=== PATIENT | female | born 1995 | race Caucasian/White ===

== ENCOUNTER → 2017-01-25 | Outpatient (CLI) | payer BC ==
[~2017-01-25] MED LIST: PRENTAB26 PO
[2017-01-25 17:01] LABS: HEMATOCRIT 38.8 % (37-47); MEAN CORPUSCULAR HEMOGLOBIN 29.5 pg (25-34); MEAN CORPUSCULAR HGB CONC 33.5 g/dl (32-36); MEAN PLATELET VOLUME 10.3 fL (7.4-10.4); PLATELET COUNT 215 K/uL (130-400); RED BLOOD COUNT 4.41 M/uL (4.2-5.4); WHITE BLOOD COUNT 12.24 K/uL (4.8-10.8)
--- NOTE | 2017-03-11 06:05 | CODING QUERY NO DIAGNOSIS ---
TREATMENT RENDERED WITHOUT A DIAGNOSIS To promote full compliance with coding requirements relating to patient care, physician participation is requested in all cases of sulfuric acid plant operator uncertainty. Please assist us with providing a diagnosis/symptom for the test(s) below: A diagnosis/symptom was not documented on your Order. A valid diagnosis/symptom is required to bill all insurances. Please remember that we are unable to code a diagnosis of rule out, probable, possible, questionable, or suspected. Tests that require a diagnosis: * CBC W/O DIFF DIAGNOSIS: Provider Signature: Date: Thank you Marni [facility] Information Management Once completed, please kindly fax back to [phone] For questions please call [phone]
== END | disposition home or self-care (01) ==
LOC: C.LAB 16:28
PROVIDERS: ATTEND Obstetrics & Gynecology
DX: Z01.89 Encounter for other specified special examinations (principal)

== ENCOUNTER → 2017-02-05 | Outpatient (CLI) | payer BC | END | disposition home or self-care (01) | LOC: C.LABSPEC 14:26 | PROVIDERS: ATTEND Obstetrics & Gynecology | DX: Z34.03 Encounter for supervision of normal first pregnancy, third trimester (principal) ==

== ENCOUNTER 2017-02-23 15:06 | Outpatient (CLI) | payer BC ==
[2017-02-23 16:34] LABS: URINE APPEARANCE CLEAR (CLEAR); URINE BILIRUBIN NEG (NEG); URINE COLOR YELLOW; URINE EPITHELIAL CELL AUTO 20-30 /lpf (0-5); URINE NITRITE NEG (NEG); URINE PH 5.5 (4.5-7.5); URINE SPECIFIC GRAVITY 1.011 (1.000-1.030); UROBILINOGEN NEG (NEG); ZZURINE CULT IF INDIC CATH NO
[2017-02-23 16:38] LABS: MANUAL MICROSCOPIC REQUIRED? NO; REVIEW REQ? NO
--- NOTE | 2017-02-23 18:42 | HISTORY & PHYSICAL EXAMINATION ---
DATE OF ADMISSION: 02/23/2017 CHIEF COMPLAINT: Intrauterine 38 weeks' 1 day and abdominal pain. HISTORY OF PRESENT ILLNESS: The patient is a 21-year-old, 1, para 0. Her course was well-dated. Her due date is 03/08/2017. She has a marginal insertion of the cord on the placenta and she has gestational diabetes which was diagnosed in [place]. She has been well-controlled. She called because she slept fitfully last night. She had lower abdominal pain including a lot of midline pain. She was having irregular contractions, but she had this constant pain that she was concerned about. She denied having any bleeding. She had no leakage of fluid. She was told to come to maternity for evaluation where she was placed on a monitor. ALLERGIES: No known drug allergies. PAST SURGICAL HISTORY: Status post appendectomy. MEDICAL HISTORY: Gestational diabetes. SOCIAL HISTORY: No smoking. No alcohol intake during . FAMILY HISTORY: Mom is 55, in good health. Father is 55, in good health. One brother is 19, in good health. REVIEW OF SYSTEMS: HEAD: No symptoms of frequent or severe headaches. EYES: No symptoms of blurred vision or double vision. EARS: No symptoms of frequent ear infections or difficulty hearing. NOSE: No symptoms of frequent nosebleeds or difficulty breathing through her nose. THROAT: No symptoms of frequent or severe sore throat, difficulty swallowing. RESPIRATORY SYSTEM: No history of asthma, chest pain or shortness of breath. PHYSICAL EXAMINATION: GENERAL: Well-developed, well-nourished 21-year-old white female, alert and oriented x3 in mild distress. EYES: Conjunctivae are pink, sclerae white. No evidence of jaundice. EARS: Normal light reflex bilaterally. NOSE: Had normal mucosa. Septum is midline. There were no polyps. THROAT: No erythema or evidence of infection. Teeth are in good state of repair. HEAD: Normocephalic, normal distribution of hair. NECK: Supple. Trachea midline. Thyroid is not enlarged. There is no adenopathy appreciated. Both carotids are of good intensity. CHEST: Clear to auscultation and percussion. No wheezes, rales or rhonchi appreciated. HEART: Had regular rhythm. S1, S2 were normal. ABDOMEN: Soft and nontender. There was no palpable uterine tenderness. Size was consistent with a 38-week fetus. No CVA tenderness. EXTREMITIES: No calf tenderness. PELVIC: Presenting part was floating. Cervix was posterior, about 80% effaced and soft, but closed. IMPRESSIONS OF THIS CASE: Intrauterine at 38 weeks' 1 day, gestational diabetes. Rule out labor. MTDD
== END 2017-02-23 17:40 | disposition home or self-care (01) ==
LOC: C.LD 15:06 → C.OPB 15:06
PROVIDERS: ATTEND Obstetrics & Gynecology
DX: O62.9 Abnormality of forces of labor, unspecified (principal); O24.419 Gestational diabetes mellitus in pregnancy, unspecified control; Z3A.38 38 weeks gestation of pregnancy; Z90.49 Acquired absence of other specified parts of digestive tract

== ENCOUNTER 2017-03-10 15:46 | Inpatient (IN) | payer BC ==
[~2017-03-10] VITALS: Ht 154.9 cm; Wt 62.0 kg
[2017-03-10] MEDS ORDERED: LACTATED RINGER'S 1000ML 1,000 ML IV PRN (16:22)
[2017-03-10 16:46] VITALS: Ht 154.9 cm; Wt 62.0 kg
[2017-03-10] MEDS ORDERED: PRENTAB26 PO (16:49)
[2017-03-10 17:19] LABS: HEMATOCRIT 38.8 % (37-47); MEAN CELL VOLUME 86.6 fL (80-100); MEAN CORPUSCULAR HEMOGLOBIN 30.8 pg (25-34); MEAN CORPUSCULAR HGB CONC 35.6 g/dl (32-36); MEAN PLATELET VOLUME 11.4 fL (7.4-10.4); PLATELET COUNT 175 K/uL (130-400); RED BLOOD COUNT 4.48 M/uL (4.2-5.4); WHITE BLOOD COUNT 12.07 K/uL (4.8-10.8)
[2017-03-10] MEDS ORDERED: OXYTOCIN 30 UNITS/500ML NSS IV ONE (21:18)
[2017-03-10] MEDS ORDERED: LACTATED RINGER'S 1000ML 500 ML IV PRN (21:46)
[2017-03-10] MEDS: LACTATED RINGER'S 1000ML 1,000 ML IV SCH (21:56)
[2017-03-10] MEDS ORDERED: OXYTOCIN 30 UNITS/500ML NSS IV PRN (22:00)
[2017-03-11] MEDS ORDERED: BUPIVACAINE 0.25% 30 ML VIAL ONE (00:52)
[2017-03-11] MEDS ORDERED: EpHEDrine SULFATE INJ 50 MG/ML AMP ONE (00:52)
[2017-03-11] MEDS ORDERED: FENTANYL CITRATE INJ 50 MCG/1 ML 2 ML VIAL ONE (00:53)
[2017-03-11] MEDS ORDERED: FENTANYL 2MCG/ML ROPIV 1.25MG/ML 100ML BAG EPI ONE (00:53)
[2017-03-11] MEDS ORDERED: NALOXONE HCL INJ 1 MG in SODIUM CHLORIDE 0.9% 1000ML 1,000 ML IV PRN (01:47)
[2017-03-11] MEDS ORDERED: LACTATED RINGER'S 1000ML 500 ML IV PRN (01:47)
[2017-03-11] MEDS ORDERED: DiphenhydrAMINE HCL 50 MG/ML VIAL IV PRN (02:00)
[2017-03-11] MEDS ORDERED: EpHEDrine SULFATE INJ 50 MG/ML AMP IV PRN (02:00)
[2017-03-11] MEDS ORDERED: NALOXONE HCL INJ 0.4 MG/1 ML VIAL/CARP IV PRN (02:00)
[2017-03-11] MEDS ORDERED: NALBUPHINE HCL INJ 10 MG/ML AMP IV PRN (02:00)
[2017-03-11] MEDS ORDERED: ONDANSETRON INJ 2 MG/ML 2 ML VIAL IV PRN (02:00)
[2017-03-11] MEDS: FENTANYL 2MCG/ML ROPIV 1.25MG/ML 100ML BAG EPI PRN ×2 (06:56→08:40)
[2017-03-11] MEDS: LACTATED RINGER'S 1000ML 1,000 ML IV SCH (09:26)
[2017-03-11] MEDS ORDERED: OXYTOCIN 30 UNITS/500ML NSS IV PRN (10:30)
[2017-03-11] MEDS ORDERED: HYDROCORTISONE ACETATE 25 MG SUPP PR PRN (10:30)
[2017-03-11] MEDS ORDERED: BENZOCAINE 20% AER SPR 82.5 GM CAN EXT PRN (10:30)
[2017-03-11] MEDS ORDERED: OXYCODONE/ACETAMINOPHEN 5-325 TAB PO PRN (10:30)
[2017-03-11] MEDS ORDERED: ACETAMINOPHEN/CODEINE 300/30MG TAB PO PRN ×2 (10:30)
[2017-03-11] MEDS ORDERED: SUPERCREAM 0.870 % 15GM JAR EXT PRN (10:30)
[2017-03-11] MEDS ORDERED: LANOLIN OINT EXT PRN ×2 (10:30)
[2017-03-11] MEDS ORDERED: DIPHTHERIA/TETANUS/PERTUSSIS 0.5 ML SYR/VIAL IM. ONE (10:30)
[2017-03-11] MEDS ORDERED: ACETAMINOPHEN 325 MG TAB PO PRN (10:30)
--- NOTE | 2017-03-11 10:58 | DELIVERY SUMMARY ---
DATE OF OPERATION: 03/11/2017 This is a 21-year-old 1, para 1. complicated by marginal insertion of the cord on the placenta and also by gestational diabetes. The patient was well controlled by diet during her old course. Blood type is O positive. Rubella immune. Her due date was 03/08/2017. She was admitted when she had a elizabeth rupture of the membrane, which was confirmed in the office with Nitrazine paper. After admission to the hospital, she labored spontaneously for several hours. Her beta strep was negative. Eventually, the contractions started to space and get less intense when she was about 4 cm. At which point, we started IV Pitocin and when she got to be 5-6, she requested and received epidural anesthesia, from which she obtained good pain relief. The Pitocin was then gradually turned up until she had a strong regular pattern. She became fully dilated. The head was in an MARIELA position. She started to push. When she was pushing, she had some minor dips in the heart rate. So, the Pitocin was turned off. The monitor tracing immediately improved. She continued to get frequent contractions. She pushed with them and then about an hour, pushed down a live female infant in the MARIELA position over an intact perineum. was suctioned through the mouth and the nose. Shoulders were delivered without difficulty. Cord was clamped, cut by the father. Cord blood was obtained. With IV Pitocin running, the placenta was removed intact. Inspection of the perineum revealed 2 minor lacerations in the labia minora on the right and left side. These were repaired with a running 3-0 chromic. There was a small laceration at about 10 o'clock in the vaginal opening at the area of the hymenal ring and this was repaired with a running 3-0 chromic and 1 or 2 interrupted [id number] 3-0 chromic. There was also a small midline laceration at 6 o'clock and this was repaired with a running 2-0 Vicryl. Following this, hemostasis was good. Vaginal exam revealed no hematoma formation or sponges in the vagina. Estimated blood loss was only about 200 mL. The patient tolerated the procedure well. I attest to the content of the Intraoperative Record and any orders documented therein. Any exception s are noted below.
--- NOTE | 2017-03-11 11:53 | Anesthesia Procedure Note ---
Anesthesia Epidural Removal Nt Date & Time Mar 11, 2017 at 11:53 Vital Signs Pain Intensity: 0.0 Notes Mental Status: alert / awake / arousable, participated in evaluation Nausea / Vomiting: adequately controlled Pain: adequately controlled Airway Patency, RR, SpO2: stable & adequate BP & HR: stable & adequate Hydration State: stable & adequate Neuraxial Anesthesia: was administered Anesthetic Complications: no major complications apparent, pt satisfied with anesthetic care Epidural: removed without complications, with tip intact
[2017-03-11 12:40] VITALS: BP 101/58; PULSE 115; TEMP 36.7
[2017-03-11 16:45] VITALS: BP 107/75; PULSE 93; TEMP 37.4
[2017-03-11] MEDS: IBUPROFEN 600 MG TAB PO PRN (17:45)
[2017-03-11 19:55] VITALS: BP 110/67; PULSE 99; TEMP 37
[2017-03-11] MEDS: DOCUSATE SODIUM 100 MG CAP PO SCH (20:05)
[2017-03-12 00:20] VITALS: BP 104/73; PULSE 99; TEMP 36.8
[2017-03-12] MEDS: IBUPROFEN 600 MG TAB PO PRN ×3 (00:40→20:21)
[2017-03-12 04:00] VITALS: BP 87/51; PULSE 85; TEMP 36.2
[2017-03-12 07:07] LABS: HEMATOCRIT 34.8 % (37-47)
[2017-03-12] MEDS: DOCUSATE SODIUM 100 MG CAP PO SCH ×2 (07:31→20:21)
[2017-03-12] MEDS: FERROUS SULFATE 325 MG TAB PO SCH (07:31)
[2017-03-12] MEDS: PRENATAL VITAMIN TAB PO SCH (07:31)
[2017-03-12 07:50] VITALS: BP 102/69; PULSE 89; TEMP 37.1; O2SAT 97
--- NOTE | 2017-03-12 08:55 | Progress Note ---
Subjective Mar 12, 2017. Subjective conversation w/ patient Ambulation: ambulating normally Voiding: no voiding problems Passing Gas: Yes Diet Tolerance: Regular Diet Lochia: Small Feeding Type: Breast Feeding Review of Systems Constitutional: + fever Objective Vital Signs Date Time Temp Pulse Resp B/P (MAP) Pulse Ox O2 Delivery O2 Flow Rate FiO2 03/12/17 04:00 36.2 85 16 87/51 (63) Room Air 03/12/17 00:20 Room Air 03/12/17 00:20 36.8 99 18 104/73 (83) Room Air 03/11/17 19:55 37.0 99 18 110/67 (81) Room Air 03/11/17 16:45 37.4 93 18 107/75 (86) Room Air 03/11/17 16:45 Room Air 03/11/17 12:40 36.7 115 18 101/58 (72) Room Air 03/11/17 12:40 Room Air Physical Exam General Appearance: WELL-APPEARING Abdomen: non tender Fundus: Firm, Non-Tender Extremities: no pedal edema, no calf tenderness Laboratory Results Last 24 Hours Test 03/12/17 06:43 Hemoglobin 12.0 g/dL Hematocrit 34.8 % Assessment and Plan Post- Day#: 1
[2017-03-12 15:30] VITALS: BP 104/63; PULSE 91; TEMP 36.9; O2SAT 97
[2017-03-12 19:50] VITALS: BP 104/71; PULSE 93; TEMP 37; O2SAT 98
[2017-03-12] MEDS ORDERED: BISACODYL 5 MG TABEC PO SCH (20:00)
[2017-03-13 00:45] VITALS: BP 110/68; PULSE 95; TEMP 36.6; O2SAT 97
[2017-03-13] MEDS ORDERED: BISACODYL 10 MG SUPP PR PRN (07:00)
[2017-03-13 08:10] VITALS: BP 103/61; PULSE 96; TEMP 37.3; O2SAT 98
--- NOTE | 2017-03-13 08:26 | Progress Note ---
Subjective Mar 13, 2017. Subjective conversation w/ patient Ambulation: ambulating normally Voiding: no voiding problems Passing Gas: Yes Diet Tolerance: Regular Diet Lochia: Small Feeding Type: Breast Feeding Review of Systems Constitutional: + fever Objective Vital Signs Date Time Temp Pulse Resp B/P (MAP) Pulse Ox O2 Delivery O2 Flow Rate FiO2 03/13/17 00:45 97 Room Air 03/13/17 00:45 36.6 95 20 110/68 (82) 97 Room Air 03/12/17 19:50 37.0 93 16 104/71 (82) 98 Room Air 03/12/17 15:30 36.9 91 20 104/63 (77) 97 Room Air 03/12/17 15:30 97 Room Air Physical Exam General Appearance: WELL-APPEARING Abdomen: non tender Fundus: Firm, Non-Tender Extremities: no pedal edema, no calf tenderness Assessment and Plan Post- Day#: 2
--- NOTE | 2017-03-13 08:29 | Discharge Instructions ---
Discharge Instructions Date of Service Mar 13, 2017. Admission Reason for Admission: Check Rupture Discharge Discharge Diagnosis / Problem: ruptured membranes term gestational diabetes Discharge Goals Goal(s): Routine recovery after delivery Activity Recommendations Activity Limitations: as noted below ACTIVITY RECOMMENDATIONS: * Gradual return to full activity over the next 2-3 weeks. * No lifting - nothing heavier than baby over the next 2-3 weeks. * Do not engage in vigorous exercise, sexual activity or sports until cleared by your physician. * Do not drive or operate any motorized equipment until cleared by your physician. * You may shower/bathe daily. DIET: Resume Previous Diet If Breast-feeding: * Increase caloric intake by 500 calories, eat 3 well balanced meals, 2 high protein snacks a day and drink 6-8 8oz. glasses of fluid per day. BREAST CARE: If you are not breast feeding: * Wear a supportive bra 24 hours a day for one to two weeks. * Avoid stimulating your breasts and nipples as much as possible during the first few weeks after delivery. * When taking a shower, have the warm water hit your back, not breasts. * When your breasts feel full, apply ice packs. Usually three to four times a day helps ease the discomfort. * Take a mild pain medication (Tylenol / Motrin) when you are uncomfortable. If breast feeding: * Use breast milk to lubricate nipples. Lansinoh cream may be used for sore nipples. You do not need to remove cream prior to breast feeding. If using a different brand of cream, check the label for directions regarding removal of cream prior to nursing. * Wear a supportive bra. * If having problems with breasts or breast feeding, call a design consultant or your health care provider. OVER THE COUNTER MEDICATION: * For discomfort or pain, you may use Acetaminophen (Tylenol), Ibuprofen (Advil ), or Naproxen (Aleve) following the package directions. * For constipation you may use Colace following the package directions. SPECIAL CARE INSTRUCTIONS: * Vaginal rest (no tampons, douching, intercourse) until after doctor 's visit. * control as discussed with doctor. * Verbalizes understanding of car seat law as reviewed with patient nursing. * Car Seat hand-out given and reviewed with patient by nursing. * Shaken baby information reviewed with patient by nursing. Call you doctor if: * Temperature greater than or equal to 100.4 degrees F or 38.0 degrees C. Take your temperature twice daily for a week. * Bleeding becomes heavier than the heaviest part of your period - saturating a sanitary pad within an hour. * Passing large clots. * Bleeding has a foul smelling odor. * Signs and symptoms of phlebitis: leg pain, warm, red or swollen area on leg. * "Baby Blues" lasting longer than two weeks. ++ If you have had a and incision has increased pain, redness, swelling, presence of any drainage, or if the incision starts to open up. If you have any questions or concerns, call your health care practitioner at [phone]. FOLLOW-UP VISIT: Please call the office at to schedule a 6 week examination. . Instructions / Follow-Up Instructions / Follow-Up ACTIVITY RECOMMENDATIONS: * Gradual return to full activity over the next 2-3 weeks. * No lifting - nothing heavier than baby over the next 2-3 weeks. * Do not engage in vigorous exercise, sexual activity or sports until cleared by your physician. * Do not drive or operate any motorized equipment until cleared by your physician. * You may shower/bathe daily. DIET: Resume Previous Diet If Breast-feeding: * Increase caloric intake by 500 calories, eat 3 well balanced meals, 2 high protein snacks a day and drink 6-8 8oz. glasses of fluid per day. BREAST CARE: If you are not breast feeding: * Wear a supportive bra 24 hours a day for one to two weeks. * Avoid stimulating your breasts and nipples as much as possible during the first few weeks after delivery. * When taking a shower, have the warm water hit your back, not breasts. * When your breasts feel full, apply ice packs. Usually three to four times a day helps ease the discomfort. * Take a mild pain medication (Tylenol / Motrin) when you are uncomfortable. If breast feeding: * Use breast milk to lubricate nipples. Lansinoh cream may be used for sore nipples. You do not need to remove cream prior to breast feeding. If using a different brand of cream, check the label for directions regarding removal of cream prior to nursing. * Wear a supportive bra. * If having problems with breasts or breast feeding, call a design consultant or your health care provider. OVER THE COUNTER MEDICATION: * For discomfort or pain, you may use Acetaminophen (Tylenol), Ibuprofen (Advil ), or Naproxen (Aleve) following the package directions. * For constipation you may use Colace following the package directions. SPECIAL CARE INSTRUCTIONS: * Vaginal rest (no tampons, douching, intercourse) until after doctor 's visit. * control as discussed with doctor. * Verbalizes understanding of car seat law as reviewed with patient nursing. * Car Seat hand-out given and reviewed with patient by nursing. * Shaken baby information reviewed with patient by nursing. Call you doctor if: * Temperature greater than or equal to 100.4 degrees F or 38.0 degrees C. Take your temperature twice daily for a week. * Bleeding becomes heavier than the heaviest part of your period - saturating a sanitary pad within an hour. * Passing large clots. * Bleeding has a foul smelling odor. * Signs and symptoms of phlebitis: leg pain, warm, red or swollen area on leg. * "Baby Blues" lasting longer than two weeks. ++ If you have had a and incision has increased pain, redness, swelling, presence of any drainage, or if the incision starts to open up. If you have any questions or concerns, call your health care practitioner at [phone]. FOLLOW-UP VISIT: Please call the office at to schedule a 6 week examination. Current Hospital Diet Patient's current hospital diet: Regular OB Diet Discharge Diet Recommended Diet: Regular Diet Pending Studies Studies pending at discharge: no Medical Emergencies . Who to Call and When: Medical Emergencies: If at any time you feel your situation is an emergency, please call 911 immediately. . Non-Emergent Contact Non-Emergency issues call your: [employer] Call Non-Emergent contact if: temperature is above 100.5 . . "Provider Documentation" section prepared by Ayush Miller. . VTE Core Measure Inpt VTE Proph given/why not?: Treatment not indicated
[2017-03-13] MEDS: PRENATAL VITAMIN TAB PO SCH (09:28)
[2017-03-13] MEDS: FERROUS SULFATE 325 MG TAB PO SCH (09:28)
[2017-03-13] MEDS: DOCUSATE SODIUM 100 MG CAP PO SCH (09:28)
[2017-03-13 12:10] VITALS: BP_DIAS 61; PULSE 96; TEMP 37.3
== END 2017-03-13 12:20 | disposition home or self-care (01) | DRG 775 ==
LOC: C.LD 15:46 → C.OPB 15:46 → C.LD 16:26 → C.OBG 03-11 12:59
PROVIDERS: ADMIT Obstetrics & Gynecology; ATTEND Obstetrics & Gynecology
PROC: 10E0XZZ Delivery of Products of Conception, External Approach (ICD-10-PCS; principal; 2017-03-11)
PROC: 0HQ9XZZ Repair Perineum Skin, External Approach (ICD-10-PCS; principal; 2017-03-11)
DX: O48.0 Post-term pregnancy (principal); O70.0 First degree perineal laceration during delivery; O24.420 Gestational diabetes mellitus in childbirth, diet controlled; O69.89X0 Labor and delivery complicated by other cord complications, not applicable or unspecified; O42.92 Full-term premature rupture of membranes, unspecified as to length of time between rupture and onset of labor; Z3A.40 40 weeks gestation of pregnancy; Z37.0 Single live birth

== ENCOUNTER → 2017-04-22 | Outpatient (CLI) | payer BC | END | disposition home or self-care (01) | LOC: C.PAPS 16:48 | PROVIDERS: ATTEND Obstetrics & Gynecology | DX: Z39.2 Encounter for routine postpartum follow-up (principal) ==

== ENCOUNTER → 2017-10-23 | Outpatient (CLI) | payer BC | END | disposition home or self-care (01) | LOC: C.LABSPEC 14:46 | PROVIDERS: ATTEND Obstetrics & Gynecology | DX: Z34.81 Encounter for supervision of other normal pregnancy, first trimester (principal) ==

== ENCOUNTER → 2017-11-19 | Day surgery (SDC) | payer BC ==
[~2017-11-19] VITALS: Ht 156.2 cm; Wt 50.0 kg
[~2017-11-19] MED LIST changes: +ACETAMINOPHEN 325 MG TAB PO PRN; +ACETAMINOPHEN 650 MG SUPP PR PRN; +ATROPINE SULFATE 0.1 MG/ML 5ML SYR IV PRN; +D5W AND 1/2NSS + 20MEQ KCL 1,000 ML IV SCH; +DEXAMETHASONE SOD INJ 4 MG/ML VIAL ONE; +EpHEDrine SULFATE INJ 50 MG/ML AMP IV PRN; +FENTANYL CITRATE INJ 50 MCG/1 ML 2 ML VIAL IV PRN; +FENTANYL CITRATE INJ 50 MCG/1 ML 2 ML VIAL ONE; +FLUMAZENIL 0.1 MG/1 ML 10 ML VIAL IV PRN; +HYDROCODONE/ACETAMIN 5/325MG TAB PO PRN; +HYDROmorphone INJ 2 MG/ML SYR/VIAL IV PRN; +IBUPROFEN 200 MG TAB PO PRN; +IBUPROFEN 600 MG TAB PO PRN; +KETOROLAC TROMETHAMINE 30 MG/ML VIAL IV. ONE; +KETOROLAC TROMETHAMINE 30 MG/ML VIAL ONE; +LABETALOL HCL IV 5 MG/ML 20ML IV PRN; +LACTATED RINGER'S 1000ML 1,000 ML IV SCH; +LIDOCAINE HCL 2% 2 ML VIAL (20MG/ML) ONE; +MEPERIDINE HCL 25 MG/ML CARP IV PRN; +METHYLERGONOVINE MALEATE 0.2 MG/ML AMP ONE; +MIDAZOLAM HCL 1 MG/ML 2ML VIAL ONE; +NALOXONE HCL 0.4 MG/1 ML VIAL/CARP IV PRN; +NURSING VERBAL MED ORDER ONE; +ONDANSETRON INJ 2 MG/ML 2 ML VIAL IV PRN; +ONDANSETRON INJ 2 MG/ML 2 ML VIAL ONE; +OXYCODONE HCL IR 5 MG TAB (IMMEDIATE RELEASE) PO PRN; +OXYCODONE/ACETAMINOPHEN 5-325 TAB PO PRN; +OXYTOCIN INJ 10 UNITS/ML VIAL ONE; +PHENYLEPHRINE 100MCG/ML 5ML SYR IV PRN; +PROPOFOL IV EMULSION 10 MG/ML 20 ML VIAL ONE
--- NOTE | 2017-11-19 07:44 | HISTORY & PHYSICAL EXAMINATION ---
DATE OF ADMISSION: 11/19/2017 CHIEF COMPLAINT: Missed , empty gestational sac. HISTORY OF PRESENT ILLNESS: The patient is a 22-year-old 2, para 1, general health is good. She conceived while . Last menstrual period was 09/14/2017. She had first transvaginal ultrasound done on 11/18/2017. It showed a gestational sac of about 7 weeks 2 days which was empty, no pole, and by dates, she should be about 9 weeks 2 days. She is presently being scheduled for D and E. PAST MEDICAL HISTORY: She has a daughter of 1-year-old. No history of rheumatic fever, heart disease, heart murmur, diabetes, tuberculosis. PAST SURGICAL HISTORY: She had her appendix removed. ALLERGIES: She has no known drug allergies. SOCIAL HISTORY: No smoking. No alcohol intake. FAMILY HISTORY: Mom is 55, in good health. Father is 60, in good health. One brother in good health. REVIEW OF SYSTEMS: HEAD: No symptoms of frequent or severe headaches. EYES: No symptoms of blurred vision or double vision. EARS: No symptoms of frequent ear infections or difficulty hearing. PHYSICAL EXAMINATION: GENERAL: Well-developed and well-nourished 22-year-old white female, alert, oriented x3, cooperative, in no acute distress, appears her stated age. HEENT: Eyes: Conjunctivae are pink. Sclerae are white. No evidence of jaundice. Ears had normal light reflex bilaterally. Nose had normal mucosa. Septum is midline. There were no polyps. Throat had no erythema or evidence of infection. Her teeth are in good state of repair. GASTROINTESTINAL: Abdomen is soft and nontender. PELVIC: Exam revealed a normal appearing cervix. Uterus was 8 weeks size. There were no adnexal masses appreciated. MUSCULOSKELETAL: Examination revealed no calf tenderness. IMPRESSION: Missed .
[2017-11-19 08:06] VITALS: BP 92/60; Ht 156.2 cm; Wt 50.0 kg
--- NOTE | 2017-11-19 08:37 | History & Physical Bridge Note ---
H&P Re-Evaluation Bridge Note: I have examined the patient, reviewed the History & Physical and in the interval since the performance of the History & Physical I have noted the following changes of clinical significance: No changes noted
--- NOTE | 2017-11-19 09:28 | [facility] Post Operative Brief Note ---
Immediate Operative Summary Operative Date November 19, 2017. Pre-Operative Diagnosis missed blighted ovum Post-Operative Diagnosis same pathology pending Procedure(s) Performed suction and sharp evacuation of uterine cavity Surgeon bobby Control Systems Designer Surgeon(s) none Estimated Blood Loss 50 ml Findings Consistent with Post-Op Diagnosis Specimens uterine contents Drains None Anesthesia Type General Complication(s) none Disposition Disposition: Recovery Room / PACU Overlapping Procedure I was immediately available: during the entire case
--- NOTE | 2017-11-19 09:37 | Discharge Instructions ---
Discharge Instructions Date of Service November 19, 2017. Admission Reason for Admission: Missed Discharge Discharge Diagnosis / Problem: MISSED Discharge Goals Goal(s): Routine recovery after surgery Activity Recommendations Activity Limitations: as noted below ACTIVITY RECOMMENDATIONS: * Avoid tampons, douching, hot tubs, pools, and intercourse until bleeding has stopped. * May shower as usual. * No strenuous activity for 24-48 hours. After 24-48 hours, you may do anything you feel like doing (driving and sports are okay). SPECIAL CARE INSTRUCTIONS: Special Diet: * Mild nausea may occur in the immediate post-operative period. * Take clear liquids such as tea, cola or bouillon until all nausea has subsided; you may then resume your normal diet. Special Care: * Light bleeding and vaginal spotting can last from a few days to 3-4 weeks. Call your doctor if bleeding becomes heavier than the heaviest part of your period. * Check your temperature twice a day for one week. If it goes above 100.4 degrees Fahrenheit (38.0 Celsius), notify your doctor. * Call your doctor's office for an appointment for 6 weeks after your surgery. FOLLOW-UP VISIT: Call your doctor's office for an appointment for 6 weeks after your surgery. . Current Hospital Diet ACTIVITY RECOMMENDATIONS: * Avoid tampons, douching, hot tubs, pools, and intercourse until bleeding has stopped. * May shower as usual. * No strenuous activity for 24-48 hours. After 24-48 hours, you may do anything you feel like doing (driving and sports are okay). SPECIAL CARE INSTRUCTIONS: Special Diet: * Mild nausea may occur in the immediate post-operative period. * Take clear liquids such as tea, cola or bouillon until all nausea has subsided; you may then resume your normal diet. Special Care: * Light bleeding and vaginal spotting can last from a few days to 3-4 weeks. Call your doctor if bleeding becomes heavier than the heaviest part of your period. * Check your temperature twice a day for one week. If it goes above 100.4 degrees Fahrenheit (38.0 Celsius), notify your doctor. * Call your doctor's office for an appointment for 6 weeks after your surgery. FOLLOW-UP VISIT: Call your doctor's office for an appointment for 6 weeks after your surgery. Patient's current hospital diet: Discharge Diet Recommended Diet: Regular Diet Procedures Procedures Performed: Dilation and Evacuation Pending Studies Studies pending at discharge: no Medical Emergencies . Who to Call and When: Medical Emergencies: If at any time you feel your situation is an emergency, please call 911 immediately. . Non-Emergent Contact Non-Emergency issues call your: [employer] Call Non-Emergent contact if: temperature is above 100.5 . . "Provider Documentation" section prepared by Ayush Miller. .
[2017-11-19 10:15] VITALS: BP 96/71; PULSE 79; TEMP 36.5; O2SAT 99
--- NOTE | 2017-11-19 10:25 | Anesthesiology Progress Note ---
Anesthesia Post Op Note Date & Time November 19, 2017 at 10:25 Vital Signs Pain Intensity: 2 Vital Signs Past 12 Hours Date Time Temp Pulse Resp B/P (MAP) Pulse Ox O2 Delivery O2 Flow Rate FiO2 11/19/17 10:10 69 14 102/77 99 Room Air 11/19/17 10:00 36.8 75 14 99/68 98 Room Air 11/19/17 09:50 68 12 106/77 100 Oxymask 10 11/19/17 09:40 81 16 102/69 100 Oxymask 10 11/19/17 09:32 36.2 88 12 113/73 100 Oxymask 10 11/19/17 08:06 92/60 (71) Notes Mental Status: alert / awake / arousable, participated in evaluation Pt Amnestic to Procedure: Yes Nausea / Vomiting: adequately controlled Pain: adequately controlled Airway Patency, RR, SpO2: stable & adequate BP & HR: stable & adequate Hydration State: stable & adequate Anesthetic Complications: no major complications apparent
[2017-11-19 10:45] VITALS: BP 94/70; PULSE 68; TEMP 36.5; O2SAT 99
--- NOTE | 2017-11-19 11:25 | OPERATIVE REPORT ---
DATE OF OPERATION: 11/19/2017 PROCEDURE: This is an operative notation of a suction sharp evacuation of uterine contents. INDICATIONS FOR SURGERY: Blighted ovum. PREOPERATIVE DIAGNOSIS: Empty uterine sac with placenta. POSTOPERATIVE DIAGNOSIS: Empty uterine sac with placenta. PATHOLOGY: Pending. SURGEON: Freddy Miller MD ESTIMATED BLOOD LOSS: 50 mL. ANESTHESIA: General. OPERATIVE FINDINGS AND PROCEDURE: The patient was brought to the OR table, correctly identified by armband and conversation. General anesthesia was administered. Perineum and vagina were painted with Betadine paint, draped in usual sterile fashion. A catheter was used to empty the bladder. Careful pelvic exam under anesthesia revealed about an 8-week gestational sized uterus, anteverted. No adnexal masses appreciated. A weighted speculum was placed in the posterior vagina. The anterior lip of the cervix was grasped with an Allis. The cervix was dilated with graduated dilators. A #8 suction curette was placed in the uterine cavity. Suction was applied. Clear amniotic fluid and placental tissue could be seen coming through the curette. Following this, a sharp curette was placed in uterine cavity. All 4 quadrants were gently curetted. This was productive of additional small fragments of tissue. Suction was reapplied to remove all remaining fragments and debris. Following this, a bimanual massage created good hemostasis along with IV Pitocin and IM Methergine. The patient tolerated the procedure well and left the OR in good condition. I attest to the content of the Intraoperative Record and any orders documented therein. Any exception s are noted below.
== END | disposition home or self-care (01) ==
LOC: C.ACU 07:37
PROVIDERS: ATTEND Obstetrics & Gynecology
DX: O02.1 Missed abortion (principal); Z90.89 Acquired absence of other organs

== ENCOUNTER 2025-04-29 04:41 | Inpatient (IN) ==
--- NOTE | 2025-04-19 13:07 | Anesthesiology Consultation ---
Date of Service April 19, 2025 Assessment & Plan (1) Encounter for pre-operative examination: Chart Review Chart Review: file clerk data entry initiated - BSG to anesthesiologist/OB DOS (pt with gestational DM) -Infectious Disease screening: Per PAT nursing assessment on 04/19/25. No known infectious disease contacts in past 10 days or current infectious disease symptoms. No recent travel outside the country. History Surgery Operation Date: 04/29/25 07:30 Proposed Procedures p Section (Delivery of Baby Through Abdominal Incision) - Beatrice Barriga MD, FACOG Height/Weight Height: 5 ft 1 in Weight: 58.967 kg Allergies Allergy/AdvReac Type Severity Reaction Status Date / Time No Known Allergies Allergy Verified 04/19/25 12:31 Medications Home Medications Medication Instructions Recorded Confirmed Last Taken acetone (urine) test (Ketone Urine #50 ea 10/28/24 04/14/25 Unknown Test strips) blood sugar diagnostic (Accu-Chek #150 ea 10/28/24 04/14/25 Unknown Ingrid Plus test strips) lancets (Accu-Chek Softclix #150 ea 10/28/24 04/14/25 Unknown Lancets) blood sugar diagnostic (Accu-Chek #150 ea 02/09/25 04/14/25 Unknown Guide test strips) vits no.133-ferrous 1 tab PO DAILY 04/19/25 04/19/25 Unknown fumarate 28 mg-folic acid 800 mcg tablet () Past Medical History Medical History Complete spontaneous hx Gestational diabetes with all past pregnancies - currently diet controlled and monitoring BSG daily. History of anesthesia reaction (2021) "I almost passed out with my last " unsure of any other details. [facility] in [place] History of chicken pox History of ectopic resolved on its own - no surgical intervention Past Family History Family History Mother Thyroid disease Other No family history of adverse response to anesthesia Denies family history of Ovarian cancer Breast cancer Colorectal cancer Past Surgical History Surgical History History of appendectomy History of dilatation and curettage (11/2017) D&E S/P section x2 Social History Smoking Status: Never smoker Do You Dip or Chew Tobacco: No Hx Alcohol Use: No Hx Substance Use: No substance use type: does not use
[2025-04-29] MEDS: LACTATED RINGER'S 1,000 ML IV SCH (05:00)
--- NOTE | 2025-04-29 05:12 | History & Physical Report ---
Date of Service April 29, 2025 Assessment & Plan (1) Previous delivery affecting , antepartum: Plan Patient presents ruptured. fetus category one. planned c/s for today and will proceed with that at present. Declines tubal. Admission and Anticipated Discharge Date Admission Date: April 29, 2025 History of Present Illness Chief Complaint: rom Primary Care Provider: NO PCP Patient is a 29yowf who presents at 39 5/7 weeks with gross srom this am. Noting contractions. no vb. and Delivery Plans GDM w/prior pregnancies *Begin monthly Growth US's @24wks Previous x2 Needs repeat, schedule @ 28wk. C/S SCHEDULED FOR 04/29/[address] GUTIERREZ Hx ectopic ASCUS PAP/ HPV- @ NOB Visit *Repeat pap after CF carrier *FOB Negative OB Labs: Blood Type B Positive 10/06/24 Antibody Screen NEGATIVE 10/06/24 Hgb 12.1 g/dl (12.0-16.0) 02/07/25 Hct 35.8 % (37.0-47.0) L 02/07/25 MCV 89.0 fL (80.0-100.0) 10/06/24 Plt Count 207 K/uL (130-400) 10/06/24 Rubella IgG Antibody Immune (Immune) 10/06/24 RPR NON-REACTIVE (NON-REACTIVE) 10/06/24 Treponema pallidum Ab Negative (Negative) 02/07/25 T.pallidum Ab (FTA-ABS) Nonreactive (Nonreactive) 10/06/24 Hep Bs Antigen Negative (Negative) 10/06/24 Hepatitis C Antibody Negative (Negative) 10/06/24 HIV 1&2 Ab/P24 Ag 4thGn Negative (Negative) 10/06/24 Glucose 1 Hr 50 gm 150 mg/dl (70-130) H 09/07/18 Maternal Serum AFP 56.6 ng/mL 11/18/24 OB Optional Labs: Chlamydia trachomatis RNA Not Detected (NotDetected) 10/06/24 Neisseria gonorrhoeae RNA Not Detected (NotDetected) 10/06/24 Alpha Fetoprotein Triple Screen SEE NOTE 11/18/24 Labs Reviewed: cfdna-low risk--mln CF carrier; declines FOB testing--mln msafp neg smp. gbs neg Allergies Allergy/AdvReac Type Severity Reaction Status Date / Time No Known Allergies Allergy Verified 04/28/25 09:16 Home Medications Medication Instructions Recorded Confirmed Type acetone (urine) test (Ketone Urine #50 ea 10/28/24 04/28/25 Rx Test strips) blood sugar diagnostic (Accu-Chek #150 ea 10/28/24 04/28/25 Rx Ingrid Plus test strips) lancets (Accu-Chek Softclix #150 ea 10/28/24 04/28/25 Rx Lancets) blood sugar diagnostic (Accu-Chek #150 ea 02/09/25 04/28/25 Rx Guide test strips) vits no.133-ferrous 1 tab PO DAILY 04/19/25 04/28/25 History fumarate 28 mg-folic acid 800 mcg tablet () Patient History Medical History Gestational diabetes with all past pregnancies - currently diet controlled and monitoring BSG daily. History of anesthesia reaction (2021) "I almost passed out with my last " unsure of any other details. [facility] in [place] History of ectopic resolved on its own - no surgical intervention History of chicken pox Complete spontaneous hx Surgical History History of dilatation and curettage (11/2017) D&E S/P section x2 History of appendectomy Family History Mother Thyroid disease Other No family history of adverse response to anesthesia Denies family history of Ovarian cancer Breast cancer Colorectal cancer Social History Smoking Status: Never smoker Second Hand Exposure: No; Do You Dip or Chew Tobacco: No; Tobacco Cessation Education Requested by Patient: No Hx Alcohol Use: No Hx Substance Use: No Preferred Language: Armenian Communication Ability: Effective General Dentist/Owner Required: No Beliefs That Will Affect Care: None marital status: marital status details: Jeremias Karime (40) [phone] Current Living Situation: Spouse and Family Current Living Situation Comment: lives with spouse, children, no pets current occupational status: unemployed current occupation: homemaker Other Information That Helps Us Care for You: No Feels Safe at Home: Yes Safety Concerns: Feels Safe At This Time Assistive Devices: None OB History Past Pregnancies Del. Date GA wks Lbr Lgth wt Sex Type del Anes Place Del Prov ? Comment 03/11/17 40 12 7-6 F Epidu [facility] Dr. Angela Ontiveros GDM diet controlled 11/26/17 Aborted-Spontaneous D&E 01/28/18 Aborted-Spontaneous 04/29/18 Ectopic 02/25/19 40 7 F Spinal Other [place] intolerance to labor, FTP GDM diet controlled 08/10/21 39 8 M Spinal Other [place] repeat , GDM diet controlled SLOT ATTENDANT History noncontributory Physical Exam Constitutional: WD/WN, vitals as above Gastrointestinal (Abdomen): soft, gravid, nt Psychiatric: A+Ox3, euthymic affect Genitourinary: grossly ruptured cx--deferred toco--q3-4min efm--150s with mod variability Results & Data Vital Signs (Past 12 Hours) Vital Signs Pulse BP 04/29/25 05:01 86 102/62 Code Status & VTE Plan VTE Prophylaxis Plan VTE Prophylaxis will be ordered: No Reason for no VTE drug order: Treatment not indicated Coding Level of Care Code None Diagnoses Previous delivery affecting , antepartum O34.219
[2025-04-29 05:25] LABS: Hematocrit (blood only) 37.5 % (37.0-47.0); Hemoglobin 13.3 g/dl (12.0-16.0); Mean Corpuscular Hemoglobin 31.1 pg (25.0-34.0); Mean Corpuscular Volume 87.6 fL (80.0-100.0); Platelet Count 174 K/uL (130-400); RDW Standard Deviation 41.9 fL (36.4-46.3); Red Blood Count 4.28 M/uL (4.20-5.40); White Blood Count 8.24 K/ul (4.8-10.8)
[2025-04-29] MEDS: ACETAMINOPHEN 500 MG TAB PO SCH (05:48)
[2025-04-29] MEDS: CITRIC ACID/SODIUM CITRATE 15 ML UDC PO SCH (05:50)
--- NOTE | 2025-04-29 05:50 | Anesthesiology Consultation ---
Date of Service April 29, 2025 Assessment & Plan Chart Review Chart Review: Acceptable Risk for Surgery and Patient NOT seen in Pre Admission Testing Consults Requested none ASA ASA2E Proposed Anesthesia Anesthesia Type: Spinal (+intrathecal narcotics) Risk / Benefits Reviewed With: PT / POA / Parent / Guardian, Accepts Plan and Informed Consent Obtained History Surgery Operation Date: 04/29/25 09:25 Proposed Procedures p Section (Delivery of Baby Through Abdominal Incision) - Beatirce Barriga MD, FACOG Height/Weight Height: 5 ft 1 in Weight: 59.874 kg Allergies Allergy/AdvReac Type Severity Reaction Status Date / Time No Known Allergies Allergy Verified 04/28/25 09:16 Medications Home Medications Medication Instructions Recorded Confirmed Last Taken acetone (urine) test (Ketone Urine #50 ea 10/28/24 04/28/25 Unknown Test strips) blood sugar diagnostic (Accu-Chek #150 ea 10/28/24 04/28/25 Unknown Ingrid Plus test strips) lancets (Accu-Chek Softclix #150 ea 10/28/24 04/28/25 Unknown Lancets) blood sugar diagnostic (Accu-Chek #150 ea 02/09/25 04/28/25 Unknown Guide test strips) vits no.133-ferrous 1 tab PO DAILY 04/19/25 04/28/25 Unknown fumarate 28 mg-folic acid 800 mcg tablet () Active Medications Generic Name Dose Route Start Last Admin Trade Name Rylee PRN Reason Stop Dose Admin Acetaminophen 1,000 mg 04/29/25 06:00 04/29/25 05:48 Acetaminophen 500 Mg Tab PO 04/29/25 18:00 1,000 mg PREOP ESTHER Administration Citric Acid/Sodium Citrate 30 ml 04/29/25 06:00 04/29/25 05:50 Citric Acid/Sodium Citrate 15 Ml Udc PO 04/29/25 06:01 30 ml PREOP ESTHER Administration Lactated Ringer's 1,000 mls @ 999 mls/hr 04/29/25 05:00 04/29/25 05:00 Lr IV 04/29/25 06:00 999 mls/hr .Q1H1M ESTHER Administration NPO Date Last Intake of Fluids: 04/29/25 Time Last Intake of Fluids: 00:00 Date Last Intake of Solids: 04/28/25 Time Last Intake of Solids: 18:00 Past Medical History Medical History Gestational diabetes with all past pregnancies - currently diet controlled and monitoring BSG daily. History of anesthesia reaction (2021) "I almost passed out with my last " unsure of any other details. [facility] in [place] History of ectopic resolved on its own - no surgical intervention History of chicken pox Complete spontaneous hx Exercise / Class Metabolic Activity II 4-5 Yardwork/Stairs/Walk up hill Past Family History Family History Mother Thyroid disease Other No family history of adverse response to anesthesia Denies family history of Ovarian cancer Breast cancer Colorectal cancer Past Surgical History Surgical History History of dilatation and curettage (11/2017) D&E S/P section x2 History of appendectomy Past Anesthesia History No Hx of Anesthesia Complications and No Family Hx of Anesthesia Complications History of PONV No Hx of PONV and No Hx of Motion Sickness Social History Smoking Status: Never smoker Do You Dip or Chew Tobacco: No Hx Alcohol Use: No Hx Substance Use: No substance use type: does not use Physical Exam Vital Signs Last Vital Signs Temp 36.5 C 04/29/25 05:18 Pulse 86 04/29/25 05:01 Resp 18 04/29/25 05:18 BP 102/62 04/29/25 05:01 ENMT Mouth: no dentition abnormality Thyromental Distance: > or= 3.5 Finger Breadths Mallampati Class: II Neck normal visual inspection Respiratory normal respiratory effort Auscultation: lungs clear to auscultation bilaterally Cardiovascular Rate/Rhythm: regular rate and regular rhythm Psychiatric Orientation: alert Testing Laboratory Results 04/29/25 05:12
[2025-04-29] MEDS ORDERED: MoRPHine SULFATE PF 1 MG/ML 10 ML AMP/VIAL ONE (05:58)
[2025-04-29] MEDS ORDERED: LACTATED RINGER'S 1,000 ML IV SCH ×2 (06:00→07:06)
[2025-04-29] MEDS ORDERED: AZITHROMYCIN 500 MG/255 ML BAG IV SCH (06:00)
[2025-04-29] MEDS ORDERED: ONDANSETRON INJ 2 MG/ML 2 ML VIAL ONE (06:02)
[2025-04-29] MEDS ORDERED: PHENYLEPHRINE HCL 25 MG/250 ML NSS IV ONE (06:02)
[2025-04-29] MEDS ORDERED: OXYTOCIN 10 UNITS/ML VIAL ONE ×3 (06:17→06:48)
--- NOTE | 2025-04-29 07:02 | Operative Report ---
PG Post Operative Report Pre & Post Diagnosis Operation Date: 04/29/25 09:25 Pre-Op Diagnosis: IUP at 39.5/7 weeks SROM Labor hx c/s x2 Post-Op Diagnosis: IUP at 39.5/7 weeks SROM Labor hx c/s x2 I identified the patient and participated in the time-out.: Yes Procedure Operation Date: 04/29/25 09:25 Actual Procedures p Repeat low transverse section. live female child @ 0630 - Caty Lilly MD, FACOG Surgeon Caty Lilly MD, FACOG Portfolio Assistant Dr. Barriga Estimated Blood Loss 235 Findings Consistent with Post-Op Diagnosis viable female infant ,cephalic, apgars 9/9. normal appearing uterus/tubes/ovs Very thin johnny but intact Fluids 1000cc uop--175cc Specimens none Drains ramos Anesthesia Type Spinal Complications none Disposition Accompanied Patient To Recovery: Yes Disposition: Recovery Room Indications 29yowf with planned repeat c/s who presented with srom and early labor. Description of Procedure The patient was taken to the operating room where she was identified verbally and by bracelet. She was seated on the operating table where a spinal anesthetic was placed by anesthesia. She was then placed in the supine position with a leftward tilt. A Ramos catheter was placed sterilely. the patient was prepped and draped in a normal standard fashion. the anesthetic was tested and found to be adequate. A time-out was held, identifying correct patient, procedure, positioning and preoperative antibiotics. There were no concerns. A Pfannenstiel skin incision was made with a knife and taken down to the underlying layer of fascia with the knife and Bovie. Bleeding was attended to with the Bovie. The fascia was incised in the midline with the knife and taken out laterally with scissors. The superior edge of the fascial incision was grasped, elevated and the underlying layer of rectus muscle was taken off bluntly and with scissors. In a similar fashion, the inferior edge of the fascial incision was grasped, elevated and the underlying layer of rectus muscle was taken off bluntly and with scissors. The muscles were bluntly in the midline. The peritoneum was entered bluntly. The incision was then stret ched. The bladder blade was placed. The vesicouterine peritoneum was identified, entered with scissors and taken out laterally with scissors. The bladder flap was created digitally A hysterotomy incision was scored with a knife and the incision was stretched superiorly and inferiorly with the ginning operator's fingers. The operators hand was placed into the incision and the head was partially delivered. the incision was tight and the head was then delivered with vacuum assist and fundal pressure. one pop off. No nuchal cord. The nose and mouth were bulb suctioned. the rest of the was then delivered without difficulty. The nose and mouth were again bulb suctioned. The cord was clamped and cut and the infant was then handed off to the awaiting aircraft accessories mechanic for drying and attention. Cord blood and segment were obtained. The placenta was Manually extracted. The uterus was exteriorized and cleared of all clot and debris with moistened laparotomy sponges. The hysterotomy incision was repaired in one layers. Hemostasis was noted to be good. Posterior cul-de-sac was irrigated and cleared of all clot and debris. The hysterotomy incision was again inspected and found to be hemostatic. the uterus was reinteriorized. Hysterotomy incision was again inspected and found to be hemostatic. The fascia was then reapproximated with 0 Vicryl starting at the edges and meeting in the midline. The subcuticular tissues were copiously irrigated and bleeding was attended to with cautery. The skin was then closed with 4-0 Vicryl in a subcuticular fashion. All sponge, lap and needle counts were correct x 2. The patient was taken to the recovery room in stable condition. I attest to the content of the Intraoperative Record and any orders documented therein. Any exceptions are noted below. OB Procedure Charges 25673
[2025-04-29] MEDS ORDERED: HYDROCORTISONE ACETATE 25 MG SUPP PR PRN (07:06)
[2025-04-29] MEDS ORDERED: SENNA 8.6 MG TAB PO PRN (07:06)
[2025-04-29] MEDS ORDERED: diphenhydrAMINE 50 MG/ML VIAL IV PRN ×2 (07:06→07:16)
[2025-04-29] MEDS ORDERED: CALCIUM CARBONATE 500 MG CHEWABLE TAB PO PRN (07:06)
[2025-04-29] MEDS ORDERED: MAGNESIUM HYDROXIDE SUSP 30 ML UDC PO PRN (07:06)
[2025-04-29] MEDS ORDERED: BENZOCAINE 20% SPRY 85 APPLN/85 GM CAN EXT PRN (07:06)
[2025-04-29] MEDS ORDERED: diphenhydrAMINE Capsule 25 MG CAP PO PRN (07:06)
[2025-04-29] MEDS ORDERED: OXYTOCIN 20 UNITS/LR 1,002 ML IV SCH (07:06)
[2025-04-29] MEDS ORDERED: NALOXONE HCL 1 MG in SODIUM CHLORIDE 0.9% 1,000 ML IV PRN (07:16)
[2025-04-29] MEDS ORDERED: MoRPHine SULFATE PF 1 MG/ML 10 ML AMP/VIAL INT SPINAL ONE (07:16)
[2025-04-29] MEDS ORDERED: PROMETHAZINE 6.25 MG/50.25 ML BAG IV PRN (07:16)
[2025-04-29] MEDS ORDERED: NALBUPHINE HCL INJ 10 MG/ML AMP IV PRN (07:16)
[2025-04-29] MEDS ORDERED: MEPERIDINE HCL 25 MG/ML CARP/VIAL IV PRN (07:16)
[2025-04-29] MEDS ORDERED: NALOXONE HCL 0.4 MG/1 ML VIAL/CARP IV PRN (07:16)
[2025-04-29] MEDS ORDERED: ONDANSETRON INJ 2 MG/ML 2 ML VIAL IV PRN (07:16)
[2025-04-29] MEDS ORDERED: MoRPHine SULFATE 4 MG/ML 1 ML CARP\\VIAL IV PRN (07:16)
[2025-04-29] MEDS ORDERED: LACTATED RINGER'S 500 ML IV PRN (07:16)
[2025-04-29] MEDS ORDERED: HYDROmorphone INJ 0.5 MG/0.5 ML SYR IV PRN (07:16)
[2025-04-29] MEDS ORDERED: NALOXONE HCL 0.08 MG in SYRINGE 1.8 ML IV PRN (07:16)
--- NOTE | 2025-04-29 07:17 | Anesthesiology Progress Note ---
Date of Service April 29, 2025 Anesthesia Post Procedure Vital Signs Vital Signs: Temp Pulse Resp BP Pulse Ox 04/29/25 07:12 83 100 04/29/25 07:07 78 92/65 L 100 04/29/25 07:02 88 99 04/29/25 06:57 100 04/29/25 06:57 95 H 04/29/25 06:57 94 H 98/61 L 04/29/25 05:18 36.5 C 18 04/29/25 05:01 86 102/62 Transfer of Care Handoff Completed per policy Notes Mental Status: alert / awake / arousable Nausea / Vomiting: adequately controlled Pain: adequately controlled Airway Patency, RR, SpO2: stable & adequate BP & HR: stable & adequate Hydration State: stable & adequate Neuraxial Anesthesia: was administered and sensory block is resolving Anesthetic Complications: no major complications apparent and Pt Satisfied with anesthetic care
[2025-04-29] MEDS ORDERED: NO NARCOTICS OR SEDATIVES SCH (07:30)
[2025-04-29] MEDS ORDERED: SODIUM CHLORIDE 0.9% 1,000 ML IV SCH (07:30)
[2025-04-29] MEDS ORDERED: DC INTRASPINAL MORPHINE SCH (07:30)
[2025-04-29] MEDS: KETOROLAC 30 MG/ML VIAL IV SCH (07:51)
[2025-04-29] MEDS: DOCUSATE SODIUM 100 MG CAP PO SCH (09:08)
[2025-04-29] MEDS: FERROUS SULFATE 325 MG TAB PO SCH (09:08)
[2025-04-29] MEDS: PRENATAL VITAMIN 1 TAB PO SCH (09:08)
[2025-04-29] MEDS: SIMETHICONE 80 MG CHEW PO SCH (13:12)
[2025-04-29] MEDS: ACETAMINOPHEN 325 MG TAB PO SCH (13:12)
[2025-04-29] MEDS: DIPHTHER/TETAN/PERTUS Vaccine (Tdap, Adol/Adult) 0.5mL IM ONE (15:55)
[2025-04-30] MEDS ORDERED: PROMETHAZINE 12.5 MG/50.5 ML BAG IV PRN (01:16)
[2025-04-30] MEDS ORDERED: HYDROmorphone INJ 0.5 MG/0.5 ML SYR IV PRN (01:16)
[2025-04-30] MEDS ORDERED: ONDANSETRON INJ 2 MG/ML 2 ML VIAL IV PRN (01:16)
[2025-04-30 06:53] LABS: Hematocrit (blood only) 32.2 % (37.0-47.0); Hemoglobin 10.8 g/dl (12.0-16.0); Immature Granulocytes # (auto) 0.03 K/uL (0.01-0.20); Immature Granulocytes % (auto) 0.3 %; Mean Corpuscular Hemoglobin 29.8 pg (25.0-34.0); Mean Corpuscular Volume 89.0 fL (80.0-100.0); Platelet Count 159 K/uL (130-400); RDW Standard Deviation 42.8 fL (36.4-46.3); Red Blood Count 3.62 M/uL (4.20-5.40); White Blood Count 9.43 K/ul (4.8-10.8)
[2025-04-30] MEDS ORDERED: KETOROLAC 30 MG/ML VIAL IV PRN (06:56)
--- NOTE | 2025-04-30 07:06 | Obstetrical Progress Note ---
Date of Service April 30, 2025 Assessment & Plan (1) care and examination: Plan: 29yo post-op day 1 s/p section Fells well today. Vital signs stable Continue post- care Treponema pallidum equivocal, pending RPR and FTA-ABS T. pallidum antibody Encourage ambulation and /bottle feeding Pain controlled Hgb stable Recommend discharge tomorrow, however pt is adamant about discharge today. Discharge home later this evening if baby cleared by Peds Follow up with OB provider in 6 weeks. Admission and Anticipated Discharge Date Admission Date: April 29, 2025 Supervising Physician Co-Signing Physician Notes Resident Physician Supervision Note: I was present with Dr. Curiel during the history and exam. I discussed the case with the resident and agree with the findings and plan as documented in the note. Any exceptions or clarifications are listed here: [None] Documented By: Beatrice Barriga MD, FACOG Subjective 29yo post-op day 1 s/p section Ambulation: Ambulating normally Voiding: No voiding problems Passing Gas: Yes Diet Tolerance: regular diet Lochia:: Small Feeding Type:: breast and bottle feeding Current Pain Level: 0/10 controlled with Tylenol, Ketorolac Resting comfortably this AM in NAD. Denies FAM, CP, SOB, N/V/D, LE pain/swelling. Physical Exam Physical Exam: General: patient resting comfortably, NAD, non-toxic in appearance, answers questions appropriately Skin: warm, dry, intact Heart: S1/S2 heard, regular, no m/r/g Lungs: equal air entry bilaterally, no rales/rhonchi/wheezes Abd: soft, NT/ND, uterine fundus firm below umbilicus, incision clean, dry, and intact Ext: warm, no clubbing/cyanosis or edema, Sandra's neg Neuro: nonfocal, patient AAOx4, speech intact, no facial droop, moving all extremities on command Results & Data Vital Signs (Past 12 Hours) Vital Signs Temp Pulse Resp BP Pulse Ox 04/30/25 03:45 36.7 C 73 16 84/52 L 99 04/30/25 01:00 16 98 04/30/25 00:00 14 98 04/30/25 00:00 36.4 C L 70 14 86/44 L 98 04/29/25 23:10 14 98 04/29/25 22:15 16 98 04/29/25 21:00 18 98 04/29/25 20:00 16 97 Resident Activity Tracking Resident Involvement: Resident Care Provided Care Provided: OB Delivery
[2025-04-30 08:55] VITALS: TEMP 97.9; O2SAT 98
[2025-04-30] MEDS: IBUPROFEN 600 MG TAB PO SCH (09:17)
[2025-04-30 12:49] VITALS: BP 96/65; PULSE 66; RESP 16
[2025-05-01] MEDS ORDERED: IBUPROFEN 600 MG TAB PO PRN (06:56)
[2025-05-01] MEDS ORDERED: ACETAMINOPHEN 325 MG TAB PO PRN (12:56)
--- NOTE | 2025-05-02 16:03 | Discharge Summary ---
Date of Service May 02, 2025 Admission HPI Per Admitting Provider Patient is a 29yowf who presents at 39 5/7 weeks with gross srom this am. Noting contractions. no vb. and Delivery Plans GDM w/prior pregnancies *Begin monthly Growth US's @24wks Previous x2 Needs repeat, schedule @ 28wk. C/S SCHEDULED FOR 04/29/[address] GUTIERREZ Hx ectopic ASCUS PAP/ HPV- @ NOB Visit *Repeat pap after CF carrier *FOB Negative OB Labs: Blood Type B Positive 10/06/24 Antibody Screen NEGATIVE 10/06/24 Hgb 12.1 g/dl (12.0-16.0) 02/07/25 Hct 35.8 % (37.0-47.0) L 02/07/25 MCV 89.0 fL (80.0-100.0) 10/06/24 Plt Count 207 K/uL (130-400) 10/06/24 Rubella IgG Antibody Immune (Immune) 10/06/24 RPR NON-REACTIVE (NON-REACTIVE) 10/06/24 Treponema pallidum Ab Negative (Negative) 02/07/25 T.pallidum Ab (FTA-ABS) Nonreactive (Nonreactive) 10/06/24 Hep Bs Antigen Negative (Negative) 10/06/24 Hepatitis C Antibody Negative (Negative) 10/06/24 HIV 1&2 Ab/P24 Ag 4thGn Negative (Negative) 10/06/24 Glucose 1 Hr 50 gm 150 mg/dl (70-130) H 09/07/18 Maternal Serum AFP 56.6 ng/mL 11/18/24 OB Optional Labs: Chlamydia trachomatis RNA Not Detected (NotDetected) 10/06/24 Neisseria gonorrhoeae RNA Not Detected (NotDetected) 10/06/24 Alpha Fetoprotein Triple Screen SEE NOTE 11/18/24 Labs Reviewed: cfdna-low risk--mln CF carrier; declines FOB testing--mln msafp neg smp. gbs neg Discharge Data Consultations 04/29/25 04:46 Consult Anesthesiology Stat Procedures Performed Operation Date: 04/29/25 09:25 Actual Procedures p Repeat section. live female child @ 0630 - Caty Lilly MD, FACOG Hospital Course (1) care and examination: (2) Previous delivery affecting , antepartum: Plan Patient was found to be grossly ruptured and milo. She underwent a repeat lower transverse c/s without complication. The ADAM was quite thin but there was no window. QBL--235cc. Her postop course was uncomplicated--tolerated a regular diet, ambulated, voided after removal of her ramos, tolerated oral pain meds. Patient wanted to go home the evening of POD 1 and she was d/c. h/h 10.8/32.2. f/u in 6 weeks. Coding Level of Care Code None Diagnoses care and examination Z39.2 Previous delivery affecting , antepartum O34.219
[2025-05-03 15:39] LABS: RPR NON-REACTIVE (NON-REACTIVE)
== END 2025-04-30 18:44 | disposition home or self-care (01) | DRG 788 ==
LOC: 4S1 04:41 → EDSTATUS 07:30 → 4E2 10:20